=== PATIENT | female | born 1985 | race Caucasian/White ===

== ENCOUNTER 2020-07-07 13:17 | Emergency (ER) | payer MEDICAID, SELFPAY ==
[2020-07-07 14:00] VITALS: BP 138/79; PULSE 74; RESP 16; TEMP 36.7; O2SAT 96
--- NOTE | 2020-07-07 14:08 | ED.GENADULT ---
HPI - General Adult General Chief complaint: Upper Respiratory Infection Stated complaint: sore throat, congestion, swelling in both lowr leg Source: patient History of Present Illness HPI narrative: Patient presents with some history of nasal congestion with sinus pressure with sore throat that started earlier this morning when she woke up with no fever chills no shortness of breath no nausea vomiting no abdominal pain currently no sick contacts no cough. Onset (ago): hour(s) Severity: mild Related Data Allergies Allergy/AdvReac Type Severity Reaction Status Date / Time No Known Allergies Allergy Verified 07/07/20 14:00 Review of Systems Review of Systems: All systems reviewed & are unremarkable except as noted in HPI and below PMFSH Past Medical History Medical History Patient denies medical problems Exam Const: General: no acute distress Orientation/consciousness: patient oriented x3 HENMT: Head: normal to inspection Other: nasal congestion with clear nasal discharge Eyes: Conjunctivae: conjunctivae normal Pupils: Equal, round and reactive pupils present Chest: Chest palpation & inspection: normal inspection of the chest Resp: Effort & Inspection: normal respiratory effort Auscultation: clear to auscultation bilaterally : General: Yes no CVA tenderness Skin: General skin exam: normal color Rashes: no rashes Course Course Emergency Course: patient appears comfortable in no acute distress no shortness of breath, strep results negative. Vital Signs Vital signs: Vital Signs Temperature 36.7 C 07/07/20 14:00 Pulse Rate 74 07/07/20 14:00 Respiratory Rate 16 07/07/20 14:00 Blood Pressure 138/79 07/07/20 14:00 Pulse Oximetry 96 07/07/20 14:00 Temperature 36.7 C 07/07/20 14:00 Pulse Rate 74 07/07/20 14:00 Respiratory Rate 16 07/07/20 14:00 Blood Pressure 138/79 07/07/20 14:00 Pulse Oximetry 96 07/07/20 14:00 Medical Decision Making Vital Signs Vital Signs: Vital Signs Temperature 36.7 C 07/07/20 14:00 Pulse Rate 74 07/07/20 14:00 Respiratory Rate 16 07/07/20 14:00 Blood Pressure 138/79 07/07/20 14:00 Pulse Oximetry 96 07/07/20 14:00 Temperature 36.7 C 07/07/20 14:00 Pulse Rate 74 07/07/20 14:00 Respiratory Rate 16 07/07/20 14:00 Blood Pressure 138/79 07/07/20 14:00 Pulse Oximetry 96 07/07/20 14:00 Critical Care Time Critical Care Time Critical Care Time: No Discharge Plan Discharge Clinical Impression: Viral infection Patient Disposition: Home, Self-Care Condition: Stable Instructions: Antibiotic Form, Viral Syndrome (ED) Additional Instructions: Take Claritin or Zyrtec [id number] daily x1 week, and take Flonase as prescribed, follow-up with primary care physician if symptoms persist or worsen. Follow-up with primary care physician if symptoms persist or worsen. Prescriptions: New fluticasone propionate [Flonase Allergy Relief] 50 mcg/actuation spray,suspension 1 spray NASAL DAILY Qty: 9.9 RF: 0 Follow-up/Referrals: Maximiliano,PRAKASH Fung [Primary Care Provider] - Time of Disposition: 14:30
[2020-07-07 14:36] VITALS: RESP 16
== END 2020-07-07 14:35 | disposition home or self-care (01) ==
PROVIDERS: Emergency Provider Emergency Medicine; PCP Physician Assistant
DX: B34.9 Viral infection, unspecified (principal)
CPT/HCPCS: 87081; 87880; 99283